=== PATIENT | male | born 1995 | race Caucasian/White ===

== ENCOUNTER 2020-07-13 23:50 | Emergency (ER) | payer OTHER, SELFPAY ==
[2020-07-14 00:47] VITALS: BP 119/61; PULSE 87; RESP 16; TEMP 36.1; O2SAT 96; BMI 29.0
--- NOTE | 2020-07-14 01:07 | PC.NURSE ---
REPORT GIVEN TO YOAV CORDOVA.
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
[2020-07-14] MEDS: Acetaminophen 325 MG TABLET 975 MG PO (01:52)
[2020-07-14] MEDS: Ibuprofen 600 MG TABLET PO (01:52)
== END 2020-07-14 02:15 | disposition home or self-care (01) ==
PROVIDERS: Emergency Provider Emergency Medicine Emergency Medical Services; PCP Internal Medicine
DX: S16.1XXA Strain of muscle, fascia and tendon at neck level, initial encounter (principal); M54.2 Cervicalgia; M54.5 Low back pain; V43.62XA Car passenger injured in collision with other type car in traffic accident, initial encounter; Y93.9 Activity, unspecified; Y92.481 Parking lot as the place of occurrence of the external cause; Y99.9 Unspecified external cause status; Z79.899 Other long term (current) drug therapy
CPT/HCPCS: 99283

== ENCOUNTER 2021-06-13 12:01 | Outpatient (REF) | payer OTHER, SELFPAY ==
[2021-06-13 15:13] LABS: Binax Internal Control QC Valid; Binax Lot number: 9864; Binax Now Covid-19 Ag Negative (Negative)
== END 2021-06-13 12:02 | disposition home or self-care (01) ==
LOC: HO.LAB 12:01
PROVIDERS: Visit Provider Internal Medicine
DX: Z20.822 Contact with and (suspected) exposure to COVID-19 (principal)
CPT/HCPCS: 36415